=== PATIENT | female | born 1950 | race Caucasian/White ===

== ENCOUNTER → 2017-04-11 | Outpatient (CLI) | payer MEDICARE, OTHER | LOC: KOH-I 13:26 | DX: R52 Pain, unspecified (principal); M89.362 Hypertrophy of bone, left tibia | CPT/HCPCS: 73562; 73590 ==

== ENCOUNTER → 2017-04-21 | Outpatient (CLI) | payer MEDICARE, OTHER | LOC: KOH-I 08:45 | DX: R93.8 Abnormal findings on diagnostic imaging of other specified body structures (principal); M89.8X6 Other specified disorders of bone, lower leg; R60.0 Localized edema | CPT/HCPCS: 73718 ==